=== PATIENT | female | born 1945 | race Caucasian/White ===

== ENCOUNTER → 2022-02-02 14:27 | Outpatient (BNVA) | payer MEDICARE, SELFPAY | PROVIDERS: PCP Internal Medicine; Visit Provider Internal Medicine | DX: M96.1 Postlaminectomy syndrome, not elsewhere classified (principal); M25.561 Pain in right knee; R20.8 Other disturbances of skin sensation | CPT/HCPCS: 99202 ==

== ENCOUNTER → 2022-12-18 14:22 | Outpatient (BNVA) | payer MEDICARE, SELFPAY | PROVIDERS: PCP Internal Medicine; Visit Provider Physician Assistant | DX: M54.12 Radiculopathy, cervical region (principal) | CPT/HCPCS: 99212 ==

== ENCOUNTER 2023-01-01 09:35 | Outpatient (REF) | payer MEDICARE, SELFPAY ==
--- NOTE | ~2023-01-01 | XR_ITS ---
EXAMINATION: XR LUMBOSACRAL SPINE WITH OBLIQUES CLINICAL INFORMATION: Postlaminectomy syndrome. COMPARISON: None available. TECHNIQUE: AP, flexion/extension, and lateral views of the lumbar spine. FINDINGS: Decreased bone mineralization. The 12th ribs appear rudimentary. There are 5 nonrib-bearing lumbar vertebral bodies. There is leftward curvature of the lumbar spine centered at L2-L3. Status post instrumented fusion L3-L4 with intervertebral disc spacer, bilateral pedicle screws and interconnecting rods. Vertebral body heights are maintained. Mild to moderate diffuse intervertebral disc space narrowing. On the sagittal view there is 6 mm retrolisthesis of L3 on L4 unchanged with flexion and extension. XR/XR lumbar spine 4V min IMPRESSION: 6 mm retrolisthesis of L3 on L4 unchanged with flexion and extension.
== END 2023-01-01 09:36 | disposition home or self-care (01) ==
LOC: HO.HOSX 09:35
PROVIDERS: PCP Internal Medicine; Visit Provider Physician Assistant
DX: M96.1 Postlaminectomy syndrome, not elsewhere classified (principal)
CPT/HCPCS: 72110; 99212

== ENCOUNTER 2023-04-16 15:13 | Outpatient (AMB) | payer MEDICARE, SELFPAY ==
--- NOTE | 2023-04-16 15:23 | HO.SPINEOV ---
Intake Intake Visit Reasons: Follow up Intake Note: Ms. Peguero is here today to discuss EMG and MRI results. Heart Coordinator Required: No Allergies amoxicillin Allergy (Unknown, Verified 12/18/22 15:28) hives aspirin Allergy (Unknown, Verified 12/18/22:28) SOB, wheezing clotrimazole Allergy (Unknown, Verified 12/18/22 15:28) swelling loratadine [Claritin] Allergy (Unknown, Verified 12/18/22 15:28) Unknown NSAIDS (Non-Steroidal Anti-Inflamma Allergy (Unknown, Verified 12/18/22 15:28) Unknown nut - unspecified Allergy (Unknown, Verified 12/18/22 15:) Unknown nystatin [Mycolog II] Allergy (Unknown, Verified 12/18/22:) Unknown penicillin V Allergy (Unknown, Verified 12/18/22:) Unknown Seasonal Allergies Allergy (Unknown, Verified 12/18/22 15:) Unknown Sulfa (Sulfonamide Antibiotics) Allergy (Unknown, Verified 12/18/22:) swelling triamcinolone [Mycolog II] Allergy (Unknown, Verified 12/18/22 15:28) Unknown azithromycin [Zithromax Z-Buck] Adverse Reaction (Unknown, Verified 12/18/22 15:) Unknown ibuprofen Adverse Reaction (Unknown, Verified 12/18/22:) Unknown Assessment & Plan Assessment & Plan (1) Numbness of left foot: Code(s): R20.8 - Other disturbances of skin sensation (2) Post laminectomy syndrome: Code(s): M96.1 - Postlaminectomy syndrome, not elsewhere classified Plan MRs Peguero is here in follow-up today. Please see my previous note for the specifics of her problem. Unfortunately she forgot to bring the discs of her cervical spine and her lumbar MRI. Her EMG came back as normal. 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 Similar findings in the cervical spine with some foraminal narrowing at various levels. Certainly this could explain some of the tingling of her fingertips and her feet, but the more she describes it as a burning uncomfortable pain it suggests a peripheral neuropathy. It is possible that the diagnosis is not of all the not for the EMG to pick it up yet. The footdrop she has in the left foot is a complication relating back to the previous surgery she had a [facility] and unfortunate that is likely to stay that way it is long-term. She is more frustrated by this tingling in her feet and in her hands. She was seeing a neurologist Dr. Matos but I do not have any of his notes in front of me. We will try to get those notes, she will bring the MRIs to us and we will call her with the results to discuss. Total amount of time spent in this visit was 20 minutes in discussion of symptoms, cervical and lumbar and EMG imaging results and subsequent plan of care Desean Cruz MD,PhD [facility] Coding Level of Care Code Est Pt Level 3 (80684) Diagnoses Numbness of left foot R20.8 Post laminectomy syndrome M96.1
== END 2023-04-16 16:21 | disposition home or self-care (01) ==
PROVIDERS: PCP Pediatrics; Visit Provider Physician Assistant
DX: R20.8 Other disturbances of skin sensation (principal); M96.1 Postlaminectomy syndrome, not elsewhere classified
CPT/HCPCS: 99213

== ENCOUNTER → 2023-04-16 15:13 | Outpatient (BNVA) | payer MEDICARE, SELFPAY | PROVIDERS: Visit Provider Physician Assistant | DX: R20.8 Other disturbances of skin sensation (principal); M96.1 Postlaminectomy syndrome, not elsewhere classified | CPT/HCPCS: 99212 ==

== ENCOUNTER 2023-05-18 13:53 | Outpatient (AMB) | payer MEDICARE, SELFPAY ==
--- NOTE | 2023-05-18 14:22 | HO.SPINEOV ---
Intake Intake Visit Reasons: follow up Intake Note: Ms. Peguero is here today for a follow up. Automotive Quality Engineer Required: No Allergies amoxicillin Allergy (Unknown, Verified 12/18/22 15:28) hives aspirin Allergy (Unknown, Verified 12/18/22 15:28) SOB, wheezing clotrimazole Allergy (Unknown, Verified 12/18/22 15:28) swelling loratadine [Claritin] Allergy (Unknown, Verified 12/18/22 15:28) Unknown NSAIDS (Non-Steroidal Anti-Inflamma Allergy (Unknown, Verified 12/18/22 15:28) Unknown nut - unspecified Allergy (Unknown, Verified 12/18/22 15:28) Unknown nystatin [Mycolog II] Allergy (Unknown, Verified 12/18/22 15:28) Unknown penicillin V Allergy (Unknown, Verified 12/18/22 15:28) Unknown Seasonal Allergies Allergy (Unknown, Verified 12/18/22 15:28) Unknown Sulfa (Sulfonamide Antibiotics) Allergy (Unknown, Verified 12/18/22 15:28) swelling triamcinolone [Mycolog II] Allergy (Unknown, Verified 12/18/22 15:28) Unknown azithromycin [Zithromax Z-Buck] Adverse Reaction (Unknown, Verified 12/18/22 15:28) Unknown ibuprofen Adverse Reaction (Unknown, Verified 12/18/22 15:28) Unknown Assessment & Plan Assessment & Plan (1) Post laminectomy syndrome: Code(s): M96.1 - Postlaminectomy syndrome, not elsewhere classified Plan Dear colleague, On 05/18/2023, I saw Apolonia Peguero will is basically looking for good neurologist. 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 Surgical decompression was performed at another institution and did not improve her drop foot. She developed instability I performed a minimally invasive L3-4 lumbar fusion to stabilize the segment. I advised her to go to [facility] to establish a relationship with her neurologist. Rio Cruz MD, PhD Spine Fellowship Trained Neurosurgeon Director, [facility] Coding Level of Care Code Est Pt Level 2 (84896) Diagnoses Post laminectomy syndrome M96.1
== END 2023-05-18 15:00 | disposition home or self-care (01) ==
PROVIDERS: PCP Pediatrics; Visit Provider Neurological Surgery
DX: M96.1 Postlaminectomy syndrome, not elsewhere classified (principal)
CPT/HCPCS: 99212

== ENCOUNTER → 2023-05-18 13:53 | Outpatient (BNVA) | payer MEDICARE, SELFPAY | PROVIDERS: PCP Pediatrics; Visit Provider Neurological Surgery | DX: M96.1 Postlaminectomy syndrome, not elsewhere classified (principal); M48.061 Spinal stenosis, lumbar region without neurogenic claudication; M21.372 Foot drop, left foot | CPT/HCPCS: 99212 ==